=== PATIENT | male | born 1995 | race Caucasian/White ===

== ENCOUNTER 2023-07-31 10:28 | Emergency (ER) | payer SELFPAY ==
[2023-07-31 10:29] VITALS: BP 121/87
--- NOTE | 2023-07-31 10:36 | ED.GENMED ---
History of Present Illness
<Betsy Carl PA-C - Last Filed: 07/31/23 14:30>
General
Chief Complaint: Skin Problem
Source: patient
Exam Limitations: none
Time Seen by Provider: 07/31/23 10:36
Nursing documentation reviewed up to this point in time: agreed with
Travel History
Have you had any contact with someone who has COVID-19?: No
Do you have any symptoms of coronavirus? Fever > 100 degrees, chills, cough, shortness of breath, sore throat, loss of taste or smell, muscle aches, or headache?: No
History of Present Illness
History of Present Illness:
27-year-old male with past medical history of asthma presenting emergency department today with concerns of a rash. Patient states that he was working in his garden 2 days ago and noticed that he came into contact with poison mary and has been
getting a rash over his forearms, webspaces of his fingers, and his groin and buttocks. Patient denies any trouble breathing, any tongue or lip swelling. Patient denies any dysphagia. Patient denies any abdominal pain, nausea or vomiting.
Patient states that he has been taking allergy medication with some relief.
Past History
<Betsy Carl PA-C - Last Filed: 07/31/23 14:30>
Past History
ED Past Medical History: Asthma
ED Past Surgical History: None
Social History
Tobacco: Non-smoker
Alcohol: None
Drug: None
Personal: Single
Living: with family
Employment: Student
Family History
Family History: Other (Nontender)
Review of Systems
<Betsy Carl PA-C - Last Filed: 07/31/23 14:30>
Review of Systems
All Other Systems: ROS reviewed and negative except as documented in HPI and ROS
Phy Exam
<Betsy Carl PA-C - Last Filed: 07/31/23 14:30>
Physical Exam
Physical Exam:
Vitals: Vitals are stable, patient is afebrile
General: Patient is well appearing and in no acute distress; non-toxic
Skin: Warm and dry, raised erythematous patches with scattered vesicles and linear excoriations noted on the bilateral forearms, web spaces of fingers, and in the periumbilical region and folds of the inner thighs
Head: Normocephalic, atraumatic
Eyes: Sclera non-icteric. EOMs intact. PERRLA.
Cardiac: Regular rate
Peripheral Vascular: No lower extremity swelling
Pulm: Normal respiratory effort
Neuro: CN II-XII intact, no focal neurologic deficits.
Psychiatric: Appropriate mood and affect.
Course
<SAMY Gallegos Last Filed: 07/31/23 14:30>
Orders/Labs/Results
Orders:
Orders
07/31/23 10:50
Diphenhydramine [Benadryl] 25 mg PO NOW STA
Prednisone [Deltasone] 50 mg PO NOW STA
Vital Signs
Initial and Last Documented VS:
Initial Vital Signs
Temp Pulse Resp BP Pulse Ox
97.8 F 76 16 121/87 99
07/31/23 10:29 07/31/23 10:29 07/31/23 10:29 07/31/23 10:29 07/31/23 10:29
Last Documented Vital Signs
Temp Pulse Resp BP Pulse Ox
97.8 F 76 16 121/87 99
07/31/23 10:29 07/31/23 10:29 07/31/23 10:29 07/31/23 10:29 07/31/23 10:29
<Jorge A Tucker DO - Last Filed: 07/31/23 10:54>
Orders/Labs/Results
Orders:
Orders
07/31/23 10:50
Diphenhydramine [Benadryl] 25 mg PO NOW STA
Prednisone [Deltasone] 50 mg PO NOW STA
Vital Signs
Initial and Last Documented VS:
Initial Vital Signs
Temp Pulse Resp BP Pulse Ox
97.8 F 76 16 121/87 99
07/31/23 10:29 07/31/23 10:29 07/31/23 10:29 07/31/23 10:29 07/31/23 10:29
Last Documented Vital Signs
Temp Pulse Resp BP Pulse Ox
97.8 F 76 16 121/87 99
07/31/23 10:29 07/31/23 10:29 07/31/23 10:29 07/31/23 10:29 07/31/23 10:29
<SMAY Gallegos Last Filed: 07/31/23 14:30>
MDM/Problems Addressed
Differential Diagnosis Includes:
ddx include poison mary, poison [place], atopic dermatitis, drug reaction,
MDM/Problems Addressed:
rash
Chronic conditions affecting care:
asthma
Acute Exacerbation and/or Progression of Chronic Illness:
n/a
<SAMY Gallegos Last Filed: 07/31/23 14:30>
*Pulse Oximetry
Patient hypoxic: no
*Critical Care Note
Total Time (30-74mins, 75-104mins- exclusive of procedures): Not Applicable
Data Reviewed
Review of Other/Old Records Reveals: Records (reviewed ER physician docume)
Source: patient
<Betsy Carl PA-C - Last Filed: 07/31/23 14:30>
Patient Management
Escalation/DeEscalation of care consider admission/obs:
27-year-old male presenting emergency department today with a poison mary rash. Patient states has happened in the past to him, he does work in a garden. Patient denies any trouble breathing, chest pain, lip or tongue swelling. Patient given a
dose of prednisone here, patient has been using allergy medicine at home to help with itching. Will send patient home on a prednisone taper. Patient stable for discharge.
ED Attending Note
<Betsy Carl PA-C - Last Filed: 07/31/23 14:30>
-
Portions of this chart may have been created with voice recognition software.� Occasional wrong word or��sound alike� substitutions may have occurred due to the inherent limitations of voice recognition software.
<Jorge A Tucker DO - Last Filed: 07/31/23 10:54>
ED Attending Note
Patient seen and examined by attending physician: Yes
I performed the substantive portion of visit, reviewed & personally made and approve the management plan that is documented in note by myself or BC.: Yes
ED Attending Note:
20-year-old male who had contact with poison mary. Exam: Awake and alert. Reddened linear fashion rash noted to forearms mostly. No signs of infection. Assessment plan: Treat for poison mary with steroids. Benadryl as needed. Okay for discharge.
Agree with above
Discharge Plan
Departure
Patient Disposition: Home (Routine Discharge)
Date of Disposition: 07/31/23
Time of Disposition: 10:55
Patient with high blood pressure during this ER visit?: No
Condition: Good
Discharge Problem:
Poison mary
Instructions: Skin Rash (DC), Poison Mary, Poison [place], Poison [place] (DC), BLOOD PRESSURE
Prescriptions:
New
prednisone 10 mg Tablet
See Rx Instructions .ROUTE .COMPLEX Qty: 45 0RF
Rx Instructions:
Take By Mouth:
50 mg daily x3 days, 40 mg daily x3 days,
30 mg daily x3 days, 20 mg daily x3 days,
10 mg daily x3 days
Activity Restrictions/Additional Instructions:
We have sent Prednisone to your pharmacy. Please take as follows:
50 mg daily x3 days, 40 mg daily x3 days, 30 mg daily x3 days, 20 mg daily for 3 days, 10 mg daily x3 days
Please wash your hands frequently to help keep the rash from spreading.
Please return to the emergency department should you develop shortness of breath, difficulty swallowing, tongue or lip swelling, fevers or chills.
Please keep the skin warm and dry. You can take Benadryl and Zyrtec/Allergra as well to help with the itching.
Interventions
Interventions:
*Risk Screen - Suicide Last Done: 07/31/23 10:29
*General Assessment Last Done: 07/31/23 10:29
*Neglect/Abuse Screening Last Done: 07/31/23 10:29
*Nursing Disposition Last Done: 07/31/23 11:08
ED-Skin Assessment Last Done: 07/31/23 11:07
Discharge Date and Time
Discharge Date/Time: 07/31/23 11:08
Print Language: POLISH
[2023-07-31] MEDS: DELTASONE 50 MG PO (10:58)
[2023-07-31] MEDS: BENADRYL 25 MG PO (10:58)
== END 2023-07-31 11:08 | disposition home or self-care (01) ==
LOC: EMR 10:28
PROVIDERS: EMERGENCY PHYSICIAN Emergency Medicine; FAMILY PHYSICIAN Family Medicine
DX: L23.7 Allergic contact dermatitis due to plants, except food (principal); J45.909 Unspecified asthma, uncomplicated
CPT/HCPCS: 99282

== ENCOUNTER 2023-08-03 16:03 | Emergency (ER) | payer SELFPAY ==
[2023-08-03 16:04] VITALS: BP 149/80
[2023-08-03 17:10] VITALS: BMI 27.3
--- NOTE | 2023-08-03 17:51 | ED.GENMED ---
History of Present Illness
<Dee Slade PA-C - Last Filed: 08/04/23 10:23>
General
Chief Complaint: Skin Problem
Source: patient
Exam Limitations: none
Time Seen by Provider: 08/03/23 16:37
Nursing documentation reviewed up to this point in time: agreed with
Travel History
Have you had any contact with someone who has COVID-19?: No
Do you have any symptoms of coronavirus? Fever > 100 degrees, chills, cough, shortness of breath, sore throat, loss of taste or smell, muscle aches, or headache?: No
History of Present Illness
History of Present Illness:
Patient is a 27-year-old male presenting to the emergency department for evaluation of rash. Patient was seen in the emergency department 4 days ago, diagnosed with poison maria r and started on a prednisone taper course. Patient states he has been
taking the taper course as prescribed and is on day 4. He has been noticing spread of rash across his body. Rash was initially on the right volar forearm but has been spreading up the right arm. He also noted some new red spots on his right upper
abdomen and left forearm. Today, patient noticed some redness and mild swelling under his eyes and became concerned that rash was spreading.
Patient denies any oral swelling, difficulty breathing, shortness of breath, chest pain. Patient denies any visual changes.
Patient does report that he cleaned his sheets and clothes. He is trying his best to keep his hands clean to prevent reinfection. He does work outside daily and is unsure if he has had a repeat exposure.
Past History
<Dee Slade PA-C - Last Filed: 08/04/23 10:23>
Past History
ED Past Medical History: Asthma
ED Past Surgical History: None
Social History
Tobacco: Non-smoker
Alcohol: None
Drug: None
Personal: Single
Living: with family
Employment: Student
Family History
Family History: Other (Nontender)
Review of Systems
<Dee Slade PA-C - Last Filed: 08/04/23 10:23>
Review of Systems
Allergies reviewed?: Yes
All Other Systems: ROS reviewed and negative except as documented in HPI and ROS
Phy Exam
<Dee Slade PA-C - Last Filed: 08/04/23 10:23>
Physical Exam
Physical Exam:
Vitals: Patient's vital signs are stable. Afebrile.
General: Patient is well appearing, no acute distress
Skin: Warm and dry. Raised erythematous patches in a linear distribution with occasional vesicles on right volar forearm extending onto right antecubital fossa, left volar forearm, right upper flank, and webspaces of fingers. No red streaking,
significant warmth, or overlying crust. No evidence of cellulitis.
Head: Normocephalic, atraumatic
Eyes: Sclera clear bilaterally. EOMs intact. No nystagmus. No periorbital edema bilaterally. No proptosis.
Throat: Protecting airway. Uvula midline. No edema of tongue or lips.
Neck: Normal ROM, no cervical spine tenderness, no meningismus
Cardiac: Regular rate and rhythm, no murmurs.
Pulm: Normal respiratory effort, no wheezes, rales, rhonchi heard on exam.
Abdomen: No abdominal tenderness.
Extremities: No evidence of cyanosis or edema
Neuro: AAOx3. CN II-XII intact. No focal neurologic deficits.
Psychiatric: Normal affect.
Course
<Dee Slade PA-C - Last Filed: 08/04/23 10:23>
Vital Signs
Initial and Last Documented VS:
Initial Vital Signs
Temp Pulse Resp BP Pulse Ox
99.0 F 92 16 149/80 99
08/03/23 16:04 08/03/23 16:04 08/03/23 16:04 08/03/23 16:04 08/03/23 16:04
Last Documented Vital Signs
Temp Pulse Resp BP Pulse Ox
99.0 F 92 16 149/80 99
08/03/23 16:04 08/03/23 16:04 08/03/23 16:04 08/03/23 16:04 08/03/23 16:04
<Mauricio Hernandez MD - Last Filed: 08/03/23 20:18>
Vital Signs
Initial and Last Documented VS:
Initial Vital Signs
Temp Pulse Resp BP Pulse Ox
99.0 F 92 16 149/80 99
08/03/23 16:04 08/03/23 16:04 08/03/23 16:04 08/03/23 16:04 08/03/23 16:04
Last Documented Vital Signs
Temp Pulse Resp BP Pulse Ox
99.0 F 92 16 149/80 99
08/03/23 16:04 08/03/23 16:04 08/03/23 16:04 08/03/23 16:04 08/03/23 16:04
<Dee Slade PA-C - Last Filed: 08/04/23 10:23>
MDM/Problems Addressed
Differential Diagnosis Includes:
Not limited to: Poison maria r, poison [place], other contact dermatitis, eczema, bacterial infection
MDM/Problems Addressed:
Patient is a 27-year-old male presenting with spreading poison maria r rash. Patient currently on day 3 of oral steroid taper course. Patient denies any fever, chills, oral swelling, or shortness of breath. Patient does work outdoors and unsure if he
has had any repeat exposures. Patient using antihistamine at home to control itch. Vital signs are stable. Exam as above. There are scattered patches of poison maria r rash on right arm, left arm, and right flank. Mild erythema of bilateral cheeks
without any vesicular component to suggest spread of posion maria r. There is no signs of involvement of eyes. There are absolutely no signs of secondary bacterial infection. Patient very well-appearing. Patient is on an appropriate steroid taper
course. Discussed with patient importance of thorough cleaning of sheets, pillowcases, clothing. Discussed importance of diligent handwashing to prevent further spread. Patient should wear clothing with adequate coverage when working outdoors.
No indication for change in management at this time. He is stable for discharge with close return precautions including monitoring for signs of infection. Patient instructed to continue prednisone taper course, antihistamines as needed.
Update: Patient did elope from the emergency department prior to receiving discharge instructions.
Chronic conditions affecting care:
N/A
Acute Exacerbation and/or Progression of Chronic Illness:
N/A
<Dee Slade PA-C - Last Filed: 08/04/23 10:23>
*Pulse Oximetry
Patient hypoxic: no
*EKG
Interpreted by ED Provider?: NA
*Manager Professional Development Interpretation
Rate: Manager Professional Development- N/A
*Critical Care Note
Total Time (30-74mins, 75-104mins- exclusive of procedures): Not Applicable
ED Attending Note
<Dee Slade PA-C - Last Filed: 08/04/23 10:23>
-
Portions of this chart may have been created with voice recognition software.� Occasional wrong word or��sound alike� substitutions may have occurred due to the inherent limitations of voice recognition software.
<Mauricio Hernandez MD - Last Filed: 08/03/23 20:18>
ED Attending Note
I performed the substantive portion of visit, reviewed & personally made and approve the management plan that is documented in note by myself or BC.: Yes
ED Attending Note:
I went to assess the patient after discussion of history, exam and treatment plan with advanced practice practitioner but unfortunately patient had eloped prior to my assessment.
Focused HPI: This is reportedly a 27-year-old male currently on prednisone for poison maria r. He works in [employer]. He was having extension of his rash and continued itching so he came to the emergency room.
Physical exam: I was unable to examine him�see BC exam.
Medical Decision Makin-year-old male with worsening symptoms from poison maria r. Per PA no signs of superinfection. Can continue oral steroid and use topical anti-itch creams. PA did discuss washing clothes, shoes and shoelaces and wearing long
sleeves when working outside. He eloped prior to my assessment.
Discharge Plan
Departure
Patient Disposition: Elopement
Patient with high blood pressure during this ER visit?: Yes
Condition: Good
Covid-19: Not Applicable
Discharge Problem:
Poison maria r dermatitis
Instructions: Poison maria r
Prescriptions:
No Action
prednisone 10 mg Tablet
See Rx Instructions .ROUTE .COMPLEX Qty: 45 0RF
Rx Instructions:
Take By Mouth:
50 mg daily x3 days, 40 mg daily x3 days,
30 mg daily x3 days, 20 mg daily x3 days,
10 mg daily x3 days
Referrals:
NONE,* [Family Provider] -
Activity Restrictions/Additional Instructions:
RETURN TO THE EMERGENCY DEPARTMENT WITH ANY FEVERS, SWELLING OF TONGUE OR MOUTH, SHORTNESS OF BREATH, ANY SIGNS OF INFECTION, CHEST PAIN, WORSENING IN CURRENT SYMPTOMS OR ANY OTHER CONCERNS
-As discussed�it is importantly complete the course of steroids. You can use calamine lotion or OTC Zanfel for itch.
-It is very important that you clean all of your sheets, pillowcases, towels, close. It is important to adhere to diligent handwashing prevent further spread of poison maria r. You should wear long clothing to prevent repeat exposures.
Interventions
Interventions:
*Risk Screen - Suicide Last Done: 08/03/23 17:10
*General Assessment Last Done: 08/03/23 16:04
*Neglect/Abuse Screening Last Done: 08/03/23 17:10
ED- Fall Risk Assessment Last Done: 08/03/23 17:10
*ED COVID-19 Vaccine History Last Done: 08/03/23 16:04
*Nursing Disposition Last Done: 08/03/23 18:36
ED-Skin Assessment Last Done: 08/03/23 17:10
Discharge Date and Time
Discharge Date/Time: 08/03/23 18:37
Print Language: TURKISH
--- NOTE | 2023-08-03 18:36 | EDRN ---
The pt eloped from the unit, this RN notified the provider and the charge nurse
== END 2023-08-03 18:37 | disposition left against medical advice (07) ==
LOC: EMR 16:03
PROVIDERS: EMERGENCY PHYSICIAN Emergency Medicine
DX: L23.7 Allergic contact dermatitis due to plants, except food (principal); R22.0 Localized swelling, mass and lump, head; R03.0 Elevated blood-pressure reading, without diagnosis of hypertension; J45.909 Unspecified asthma, uncomplicated
CPT/HCPCS: 99282

== ENCOUNTER 2023-09-11 18:50 | Emergency (ER) | payer SELFPAY ==
[2023-09-11 18:53] VITALS: BP 141/86; BMI 27.3
--- NOTE | 2023-09-11 19:00 | ED.GENMED ---
History of Present Illness
General
Chief Complaint: Skin Problem
Time Seen by Provider: 09/11/23 19:00
History of Present Illness
History of Present Illness:
HPI: The patient presents due to concerns of infection at the left foot on the dorsal aspect. 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 He also reports having a history of MRSA and sounds like may have been bacteremic in the
past requiring hospitalization for a week. He currently does not have any fevers.
EXAM:
GENERAL: Well appearing in no distress, he is well-appearing
HEENT: Moist oral mucosa
CARDIOVASCULAR: No murmurs, normal heart rate, regular rhythm, No chest wall tenderness
PULMONARY: No respiratory distress, breath sounds are clear and equal
ABDOMEN: Soft with no peritoneal signs, no tenderness
NEUROLOGIC: Excellent strength all extremities, no coordination deficits
PSYCHIATRIC: Appropriate mental status, normal insight and judgement
EXTREMITIES: There is an unroofed blister to the midpoint of the dorsal aspect of the left foot, there is also surrounding cellulitic changes with warmth and erythema which is tender to palpation, he has good perfusion distally
TIME OF INITIAL ENCOUNTER: 7:05 PM
NUMBER AND COMPLEXITY OF PROBLEMS ADDRESSED AT THE ENCOUNTER
� Chronic conditions affecting care: Asthma, has had asthma in the past
� Acute Exacerbation and/or Progression of Chronic Illness: This is an acute problem
� Differential Diagnosis includes: Cellulitis, MRSA, doubt bacteremia/sepsis vital signs
AMOUNT AND/OR COMPLEXITY OF DATA TO BE REVIEWED AND ANALYZED
� I performed an independent evaluation of and my interpretation is:
EKG:
CT:
X-rays:
Laboratory Studies:
Other:
� Review of other/old records:
� Clinical information was obtained by an independent historian: None needed
� Prescriptions/Medications Considered but not given: Consider doxycycline however the patient works outside frequently
� Further testing considered but not performed: No clear indication for at this time
RISK OF COMPLICATIONS AND/OR MORBIDITY OR MORTALITY OF PATIENT MANAGEMENT
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
� Discussion with other providers:
� Escalation of care including admission/observation vs risk of discharge considered: As patient does have a history of MRSA, and has signs of cellulitis to the dorsal aspect of the left foot, will place on clindamycin
Past History
Past History
ED Past Medical History: Asthma
ED Past Surgical History: None
Social History
Tobacco: Non-smoker
Alcohol: None
Drug: None
Personal: Single
Living: with family
Employment: Student
Family History
Family History: Other (Nontender)
Phy Exam
Physical Exam
Physical Exam:
See HPI
Course
Orders/Labs/Results
Orders:
Orders
09/11/23 19:11
Clindamycin HCl [Cleocin] 300 mg PO NOW STA
Vital Signs
Initial and Last Documented VS:
Initial Vital Signs
Temp Pulse Resp BP Pulse Ox
98.9 F 98 16 141/86 98
09/11/23 18:53 09/11/23 18:53 09/11/23 18:53 09/11/23 18:53 09/11/23 18:53
Last Documented Vital Signs
Temp Pulse Resp BP Pulse Ox
98.9 F 98 16 141/86 98
09/11/23 18:53 09/11/23 18:53 09/11/23 18:53 09/11/23 18:53 09/11/23 18:53
*Critical Care Note
Total Time (30-74mins, 75-104mins- exclusive of procedures): Not Applicable
ED Attending Note
-
Portions of this chart may have been created with voice recognition software.� Occasional wrong word or��sound alike� substitutions may have occurred due to the inherent limitations of voice recognition software.
Discharge Plan
Departure
Patient Disposition: Home (Routine Discharge)
Date of Disposition: 09/11/23
Time of Disposition: 19:11
Patient with high blood pressure during this ER visit?: Yes
Discharge Problem:
Cellulitis
Instructions: Cellulitis (Skin Infection), Adult (DC)
Prescriptions:
New
clindamycin HCl 300 mg capsule
300 mg PO TID Qty: 21 0RF
Activity Restrictions/Additional Instructions:
Next dose of clindamycin tomorrow. Clindamycin does have coverage against MRSA as well. Return here if worse. Typically, we say that it would take about 48 hours to see improvement.
Interventions
Interventions:
*Risk Screen - Suicide Last Done: 09/11/23 18:53
*General Assessment Last Done: 09/11/23 19:03
*Neglect/Abuse Screening Last Done: 09/11/23 18:53
ED- Fall Risk Assessment Last Done: 09/11/23 19:03
*ED COVID-19 Vaccine History Last Done: 09/11/23 19:03
ED-Skin Assessment Last Done: 09/11/23 19:03
Discharge Date and Time
Print Language: PALESTINIAN
[2023-09-11] MEDS: CLEOCIN 300 MG PO (19:56)
== END 2023-09-11 19:59 | disposition home or self-care (01) ==
LOC: EMR 18:50
PROVIDERS: EMERGENCY PHYSICIAN Emergency Medicine
DX: L03.116 Cellulitis of left lower limb (principal); R03.0 Elevated blood-pressure reading, without diagnosis of hypertension; J45.909 Unspecified asthma, uncomplicated; Z86.14 Personal history of Methicillin resistant Staphylococcus aureus infection
CPT/HCPCS: 99283

== ENCOUNTER 2024-04-04 17:46 | Emergency (ER) | payer SELFPAY ==
[2024-04-04 17:48] VITALS: BP 143/94
[2024-04-04 18:55] VITALS: BP 143/89; BMI 29.8
--- NOTE | 2024-04-04 19:31 | ED.GENMED ---
History of Present Illness
General
Chief Complaint: Skin Problem
Time Seen by Provider: 04/04/24 19:12
History of Present Illness
History of Present Illness:
28-year-old male with prior history of MRSA presenting to the emergency department for concern of a skin infection. Patient reports yesterday he started to note red dots left forearm and one dot on his right umbilical region. He notes history of
MRSA in the past, required admission for IV antibiotics so he was concerned and wanted to start treatment prior to infection escalating. Does note the symptoms started after going to the gym. Denies any systemic symptoms such as fever. Denies
chest pain, difficulty breathing. Denies abdominal pain or GI symptoms. Denies additional acute medical complaints
Past History
Past History
ED Past Medical History: Asthma
ED Past Surgical History: None
Social History
Tobacco: Non-smoker
Alcohol: None
Drug: None
Personal: Single
Living: with family
Employment: Student
Family History
Family History: Other (Nontender)
Phy Exam
Physical Exam
Physical Exam:
General: Well-appearing, no clinical signs of dehydration, nontoxic and in no acute distress
HEENT: protecting airway
Neck: appears supple
CV: Normal heart rate
Resp: No accessory muscle use, no increased work of breathing
Abd: No distention
Extremities: No deformities, no swelling, no erythema
Neuro: alert, no focal neurologic deficit
: deferred
Rectal: deferred
Psych: Normal affect
Skin: Small red papules, scattered at the left medial forearm. 1 area at the umbilicus. No confluence of papules or large area of erythema
Course
Vital Signs
Initial and Last Documented VS:
Initial Vital Signs
Temp Pulse Resp BP Pulse Ox
98.5 F 77 16 143/94 100
04/04/24 17:48 04/04/24 17:48 04/04/24 17:48 04/04/24 17:48 04/04/24 17:48
Last Documented Vital Signs
Temp Pulse Resp BP Pulse Ox
98.5 F 75 16 143/89 99
04/04/24 17:48 04/04/24 18:55 04/04/24 18:55 04/04/24 18:55 04/04/24 18:55
MDM/Problems Addressed
MDM/Problems Addressed:
28-year-old male with prior history of MRSA presenting for concern of skin rash. No symptoms started yesterday. Vital signs are normal
On exam patient is well-appearing, no acute distress or discomfort. Patient with very minor area of redness on his left arm and umbilical lesion. Overall low suspicion for MRSA. Possible folliculitis, however patient notes that his symptoms
started like this on his prior episode of MRSA. Will err on the side of caution and start patient on oral antibiotic. Otherwise patient is nontoxic, no acute distress. No neurovascular compromise to extremity. No indication for advanced workup
or admission. Will start on doxycycline. Return precautions discussed and patient verbalized under
*Critical Care Note
Total Time (30-74mins, 75-104mins- exclusive of procedures): Not Applicable
ED Attending Note
-
Portions of this chart may have been created with voice recognition software.� Occasional wrong word or��sound alike� substitutions may have occurred due to the inherent limitations of voice recognition software.
Discharge Plan
Departure
Prescriptions:
No Action
clindamycin HCl 300 mg capsule
300 mg PO TID Qty: 21 0RF
Referrals:
NONE,* [Family Provider] -
Interventions
Interventions:
*Risk Screen - Suicide Last Done: 04/04/24 17:48
*General Assessment Last Done: 04/04/24 18:55
*Neglect/Abuse Screening Last Done: 04/04/24 17:48
ED- Fall Risk Assessment Last Done: 04/04/24 18:55
*ED COVID-19 Vaccine History Last Done: 04/04/24 18:55
ED-Skin Assessment Last Done: 04/04/24 18:55
Discharge Date and Time
Print Language: FRISIAN
[2024-04-04] MEDS: VIBRAMYCIN 100 MG PO (19:43)
== END 2024-04-04 20:15 | disposition home or self-care (01) ==
LOC: EMR 17:46
PROVIDERS: EMERGENCY PHYSICIAN Student in an Organized Health Care Education/Training Program
DX: R21 Rash and other nonspecific skin eruption (principal); J45.909 Unspecified asthma, uncomplicated; Z86.14 Personal history of Methicillin resistant Staphylococcus aureus infection
CPT/HCPCS: 99282

== ENCOUNTER 2024-08-15 07:48 | Emergency (ER) | payer SELFPAY ==
[2024-08-15 07:49] VITALS: BP 140/91
[2024-08-15 09:32] VITALS: BMI 28.7
[2024-08-15 09:47] LABS: % Basophils 0.3 % (0-2); % Eosinophils 1.2 % (0-6); % Immature Granulocytes 0.2 % (0-0.5); % Lymphocytes 26.8 % (20.5-51.1); % Monocytes 9.1 % (1.7-9.3); % Neutrophils 62.4 % (42.2-75.2); Absolute Eosinophils 0.1 10^3/uL (0-0.7); Absolute Lymphocytes 2.3 10^3/uL (1.2-3.4); Absolute Monocytes 0.8 10^3/uL (0.1-0.6); Absolute Neutrophils 5.4 10^3/uL (1.4-6.5); Hematocrit 42.6 % (39.0-52.0); Hemoglobin 14.4 g/dL (13.0-18.0); Mean Corp Hgb Conc. 33.8 g/dL (33.0-37.0); Mean Corpuscular Hgb 31.4 pg (27.0-31.0); Mean Corpuscular Volume 92.8 fL (80.0-94.0); Mean Platelet Volume 9.2 fL (7.4-10.4); Nucleated Red Blood Cells % 0 % (-); Platelet Count 294 10^3/uL (130-400); Red Blood Cell Count 4.59 10^6/uL (4.70-6.10); Red Cell Dist. Width 12.4 % (11.5-14.5); White Blood Cell Count 8.7 10^3/uL (4.8-10.8)
--- NOTE | 2024-08-15 09:57 | ED.GENMED ---
History of Present Illness
<SAULO Carlos - Last Filed: 08/16/24 12:07>
General
Chief Complaint: Rectal Bleeding
Time Seen by Provider: 08/15/24 08:00
<Mauricio Hernandez MD - Last Filed: 08/15/24 10:54>
General
Source: patient
Exam Limitations: none
Nursing documentation reviewed up to this point in time: agreed with
History of Present Illness
History of Present Illness:
28-year-old male with history of asthma presents for multiple complaints�he is 3 main complaints 1) intermittent rectal bleeding for a few months 2) hematuria 3) intermittent headaches.
Regarding rectal bleeding: Patient reports for the past few months he has had intermittent blood in his stool�most persistent over the past month. He says that he will have 1 or 2 episodes every week or 2 where he notices blood coating his stool.
He denies any rectal pain, abdominal pain, dizziness, shortness of breath/lightheadedness. He is not on any blood thinners.
Regarding hematuria: Patient reports that this morning he woke up and noticed blood mixed in with his urine. Denies any hematuria. He denies any trauma. Denies any penile discharge. He was able to completely empty his bladder and denies any
issue with his stream. He says he has never had similar issue in the past. He is requesting that we test him for STDs.
Regarding headaches: Patient reports over the past month he has had 'splitting headaches.' He describes 'like something stuck in my head.' He says that they last anywhere from 30 minutes to 2 hours. No clear trigger noted. He says that he gets
these headaches every 1 to 2 days over the past month. He denies any trauma to the head. He says he does get associated flashing lights in visual field with these headaches. He denies any vision loss or eye pain. Denies any speech issues.
Denies any weakness or numbness in extremities.
Patient does not have a primary doctor, currently does not have insurance. He has never been evaluated for these issues in the past.
Past History
<SAULO Carlos - Last Filed: 08/16/24 12:07>
Past History
ED Past Medical History: Asthma
ED Past Surgical History: None
Social History
Tobacco: Non-smoker
Alcohol: None
Drug: None
Personal: Single
Living: with family
Employment: Student
Family History
Family History: Other (Nontender)
Review of Systems
<Mauricio Hernandez MD - Last Filed: 08/15/24 10:54>
Review of Systems
All Other Systems: ROS reviewed and negative except as documented in HPI and ROS
Constitutional: Denies fever
Respiratory: Denies trouble breathing
Cardiac: Denies chest pain
ABD/GI: Reports bloody stools; Denies abdominal pain, nausea or vomiting
: Reports bleeding (Hematuria); Denies dysuria, frequency or flank pain
Musculoskeletal: Denies neck pain or back pain
Neurological: Reports headache; Denies dizzy, weakness or numbness
Phy Exam
<Mauricio Hernandez MD - Last Filed: 08/15/24 10:54>
Physical Exam
Physical Exam:
General: Awake, alert, oriented x3; no acute distress
Head: Normocephalic, atraumatic
Eyes: Conjunctiva normal, EOMI, pupils equal round reactive to light bilaterally
Throat: Airway intact, handling secretions
Neck: Trachea midline, supple without meningismus
Lungs: Clear to auscultation bilaterally, no wheezing, rales, rhonchi
Heart: Regular rate and rhythm, no murmurs, gallops, or rubs
Abd: Soft, non distended, nontender, no palpable mass
Back: No CVA tenderness
Rectal: Patient has external hemorrhoid, no anal fissures, no rectal masses, brown stool in rectal vault no blood noted
Neuro: Cranial nerves intact, speech fluid without dysarthria or aphasia, no limb ataxia, motor and sensory intact in all extremities, ambulatory with normal gait
Skin: no rash
Extremities: No edema in extremities, equal pulses in all extremities
Scores
<Mauricio Hernanedz MD - Last Filed: 08/15/24 10:54>
Heart Failure Risk
Heart Failure Risk Score: Not Applicable
Heart Score for Chest Pain Patients
STEMI patient?: Not applicable
Withdrawal Assessment of Alcohol
Withdrawal Assessment Completed?: Not applicable
Course
<SAULO Carlos - Last Filed: 08/16/24 12:07>
Orders/Labs/Results
Orders:
Orders
08/15/24 09:21
CT Head W/o Iv Contrast Urgent
Comment:
Reason For Exam: headache
08/15/24 09:28
Case Management Consult ONCE
Case Management Consult: Other
Comment: insurance
08/15/24 09:39
Complete Blood Count/With Diff Urgent
Comprehensive Metabolic Panel Urgent
Creatine Phosphokinase Urgent
Comment: ADD ON
Urinalysis Reflex To Culture Urgent
Date Specimen was Collected: 08/15/24
Time Specimen was Collected: 09:34
Urine Microscopic Reflex Cult Urgent
Chlamydia/GC by PCR Urgent
RYAN Source: Urine
Specimen Description:
Source:: URINE
Date Specimen was Collected: 08/15/24
Time Specimen was Collected: 09:33
Urine Culture Urgent
RYAN Source: U
Specimen Description:
Date Specimen was Collected: 08/15/24
Time Specimen was Collected: 09:34
08/15/24 10:12
Add On- LAB Urgent
Tests Added?: CPK
08/15/24 10:53
Cefdinir [Omnicef] 300 mg PO NOW STA
Abnormal Lab Results
08/15/24
09:39
RBC 4.59 L 10^6/uL
(4.70-6.10)
MCH 31.4 H pg
(27.0-31.0)
Absolute Monos (auto) 0.8 H 10^3/uL
(0.1-0.6)
Chloride 111 H mmol/L
(98-107)
Glucose 100 H mg/dl
(70-99)
Creatine Kinase 246 H U/L
(55-170)
Urine Ketones 1+ A
(Negative)
Ur Occult Blood Reflex 4+ A
(Negative)
Urine Nitrite (Reflex) Positive A
(Negative)
Leukocyte Esterase Rfl 1+ A
(Negative)
Urine RBC >100 A /HPF
(0-2)
Urine Bacteria (Reflex) Few A
(Negative)
Urine Albumin (Reflex) 3+ A
(Neg - Trace)
08/15/24 09:39
08/15/24 09:39
Vital Signs
Initial and Last Documented VS:
Initial Vital Signs
Temp Pulse Resp BP Pulse Ox
98.1 F 76 18 140/91 99
08/15/24 07:49 08/15/24 07:49 08/15/24 07:49 08/15/24 07:49 08/15/24 07:49
Last Documented Vital Signs
Temp Pulse Resp BP Pulse Ox
98.1 F 68 18 132/97 98
08/15/24 07:49 08/15/24 13:02 08/15/24 07:49 08/15/24 13:02 08/15/24 13:02
<Mauricio Hernandez MD - Last Filed: 08/15/24 10:54>
Orders/Labs/Results
Orders:
Orders
08/15/24 09:21
CT Head W/o Iv Contrast Urgent
Comment:
Reason For Exam: headache
08/15/24 09:28
Case Management Consult ONCE
Case Management Consult: Other
Comment: insurance
08/15/24 09:39
Complete Blood Count/With Diff Urgent
Comprehensive Metabolic Panel Urgent
Creatine Phosphokinase Urgent
Comment: ADD ON
Urinalysis Reflex To Culture Urgent
Date Specimen was Collected: 08/15/24
Time Specimen was Collected: 09:34
Urine Microscopic Reflex Cult Urgent
Chlamydia/GC by PCR Urgent
RYAN Source: Urine
Specimen Description:
Source:: URINE
Date Specimen was Collected: 08/15/24
Time Specimen was Collected: 09:33
Urine Culture Urgent
RYAN Source: U
Specimen Description:
Date Specimen was Collected: 08/15/24
Time Specimen was Collected: 09:34
08/15/24 10:12
Add On- LAB Urgent
Tests Added?: CPK
08/15/24 10:53
Cefdinir [Omnicef] 300 mg PO NOW STA
Abnormal Lab Results
08/15/24
09:39
RBC 4.59 L 10^6/uL
(4.70-6.10)
MCH 31.4 H pg
(27.0-31.0)
Absolute Monos (auto) 0.8 H 10^3/uL
(0.1-0.6)
Chloride 111 H mmol/L
(98-107)
Glucose 100 H mg/dl
(70-99)
Creatine Kinase 246 H U/L
(55-170)
Urine Ketones 1+ A
(Negative)
Ur Occult Blood Reflex 4+ A
(Negative)
Urine Nitrite (Reflex) Positive A
(Negative)
Leukocyte Esterase Rfl 1+ A
(Negative)
Urine RBC >100 A /HPF
(0-2)
Urine Bacteria (Reflex) Few A
(Negative)
Urine Albumin (Reflex) 3+ A
(Neg - Trace)
08/15/24 09:39
08/15/24 09:39
Vital Signs
Initial and Last Documented VS:
Initial Vital Signs
Temp Pulse Resp BP Pulse Ox
98.1 F 76 18 140/91 99
08/15/24 07:49 08/15/24 07:49 08/15/24 07:49 08/15/24 07:49 08/15/24 07:49
Last Documented Vital Signs
Temp Pulse Resp BP Pulse Ox
98.1 F 68 18 132/97 98
08/15/24 07:49 08/15/24 13:02 08/15/24 07:49 08/15/24 13:02 08/15/24 13:02
<Mauricio Hernandez MD - Last Filed: 08/15/24 10:54>
MDM/Problems Addressed
Differential Diagnosis Includes:
Rectal bleeding: Hemorrhoid, diverticular bleed/AVM/polyp all considered but unlikely given reported history and visible hemorrhoid on exam
Hematuria: UTI, bladder mass, nephrolithiasis, rhabdomyolysis, polyp/AVM, urethral tear/injury
Headaches: Tension headache, migraine headache, cluster headache, brain bleed, brain mass
MDM/Problems Addressed:
28-year-old male presents for evaluation of multiple complaints:
# Rectal bleeding: Patient has hemorrhoid noted on exam�clinical history is consistent with bleeding hemorrhoid. Will check H&H to ensure stability, advised regarding sitz bath's.
# Hematuria: Check urinalysis, renal function, CPK. Encourage fluids. Bladder scan to ensure no retention. Will need to see urology for follow-up.
# Headaches: Describes intermittent headaches associated with visual aura consistent with migraines. Will check CT head. Check CBC and electrolytes. Currently headache free.
Ultimately patient will need a primary care physician and insurance to ensure good outpatient medical follow-up. Case discussed with case management to help with patient acquiring insurance. Patient was referred for primary care physician via our
PCP referral line.
Labs and imaging reviewed: CBC shows normal hemoglobin 14.4, no thrombocytopenia or other clinically significant abnormalities. CMP no clinically significant abnormalities. Again, suspect GI bleeding is hemorrhoidal. Urinalysis is positive for
nitrites, blood�microanalysis shows bacteria with some pyuria and significant RBCs. Suspect that this is likely hemorrhagic cystitis we will treat with antibiotics. CT head showed no acute abnormalities�I suspect his headaches are migraine
headaches. At this point he is stable for discharge�will follow-up as an outpatient to establish care with a primary doctor. I also provided a referral to urology. manager solar provided resources to obtain insurance. Patient is comfortable with
the above plan. All questions were answered.
<Mauricio Hernandez MD - Last Filed: 08/15/24 10:54>
*Radiology
Radiology exam reviewed: radiology read reviewed
*Pulse Oximetry
Patient hypoxic: no
*Critical Care Note
Total Time (30-74mins, 75-104mins- exclusive of procedures): Not Applicable
Data Reviewed
Source: patient
ED Attending Note
<SAULO Carlos - Last Filed: 08/16/24 12:07>
-
Portions of this chart may have been created with voice recognition software.� Occasional wrong word or��sound alike� substitutions may have occurred due to the inherent limitations of voice recognition software.
Discharge Plan
Departure
Patient Disposition: Home (Routine Discharge)
Date of Disposition: 08/15/24
Time of Disposition: 10:53
Patient with high blood pressure during this ER visit?: Yes
Discharge Problem:
Hemorrhoid, Migraines, Hematuria, Acute UTI
Instructions: Blood in the urine (hematuria) in adults, Hemorrhoids (DC), Migraine in adults
Prescriptions:
New
cefdinir 300 mg capsule
300 mg PO BID 5 Days Qty: 10 0RF
No Action
ibuprofen [Advil] 200 mg Tablet
200 mg PO BID
omeprazole 20 mg Tablet,Delayed Release (Dr/Ec)
20 mg PO DAILY
Referrals:
Cornell Antoine MD [Active, Urology] - Call in 1-3 days for appt
Referral Note: Urology--follow up on hematuria
UNKNOWN - PT DOES,NOT KNOW [Family Provider]
Activity Restrictions/Additional Instructions:
Thank you for visiting the Emergency Department at [facility].
1. Please schedule a follow up appointment as directed. Call first thing tomorrow morning to make an appointment.
2. If indicated, please take your medications as instructed and indicated on discharge paperwork.
3. If any of your symptoms do not improve, or persist, or become more severe within 6-12 hours, please return to the emergency department for further care.
4. Please return to the emergency department if you develop a headache, neck pain/stiffness, fever greater than 100.4F, chest pain, shortness of breath, persistent nausea, vomiting, slurred speech, difficulty walking, numbness/tingling, weakness,
signs of infection or any other symptoms that are worrisome to you.
Please call [phone] if you have any questions.
Interventions
Interventions:
*Risk Screen - Suicide Last Done: 08/15/24 07:49
*General Assessment Last Done: 08/15/24 07:49
*Neglect/Abuse Screening Last Done: 08/15/24 07:49
*ED- Fall Risk Assessment Last Done: 08/15/24 09:42
*ED COVID-19 Vaccine History Last Done: 08/15/24 09:42
*Nursing Disposition Last Done: 08/15/24 13:02
TU-[facility] Assessment Last Done: 08/15/24 11:00
ED- Cardiac Assessment Last Done: 08/15/24 11:15
ED- Pulmonary Assessment Last Done: 08/15/24 09:46
Discharge Date and Time
Discharge Date/Time: 08/15/24 12:30
Print Language: SINHALA
--- NOTE | 2024-08-15 10:16 | CM ---
Met with pt bedside in ED. Pt currently uninsured, insurance resources provided. Pt is employed and plans to speak to his employer about insurance.
[2024-08-15 10:18] LABS: Urine Albumin 3+ (Neg - Trace); Urine Bilirubin Negative (Negative); Urine Character Cloudy (Clear); Urine Color Red; Urine Glucose Negative (Negative); Urine Ketone 1+ (Negative); Urine Leukocyte 1+ (Negative); Urine Nitrite Positive (Negative); Urine Occult Blood 4+ (Negative); Urine Specific Gravity 1.015 (<1.030); Urine Urobilinogen Negative (Neg - 1+)
[2024-08-15 10:39] LABS: Urine Urothelial Cell 0-2 /LPF (FEW)
[2024-08-15 10:40] LABS: Urine Red Blood Cell >100 /HPF (0-2)
[2024-08-15 10:41] LABS: Urine Bacteria Few (Negative)
[2024-08-15 10:46] LABS: ALT (SGPT) 23 U/L (0-50); AST (SGOT) 27 U/L (17-59); Albumin 4.5 g/dl (3.5-5.0); Alkaline Phosphatase 75 U/L (38-126); Blood Urea Nitrogen 18 mg/dl (9-20); Calcium 9.2 mg/dl (8.4-10.2); Carbon Dioxide 24 mmol/L (22-30); Chloride 111 mmol/L (98-107); Estimated Creatinine Clearance 114 ml/min; Glucose 100 mg/dl (70-99); Potassium 4.1 mmol/L (3.5-5.1); Sodium 141 mmol/L (135-145); Total Bilirubin 0.5 mg/dl (0.2-1.3); eGFR > 60.00
[2024-08-15 11:00] VITALS: BP 132/97
[2024-08-15 11:10] LABS: Creatine Phosphokinase 246 U/L (55-170)
[2024-08-15] MEDS: OMNICEF 300 MG PO (11:29)
[2024-08-15 13:02] VITALS: BP 132/97
== END 2024-08-15 12:30 | disposition home or self-care (01) ==
LOC: EMR 07:48
PROVIDERS: EMERGENCY PHYSICIAN Emergency Medicine
DX: K64.9 Unspecified hemorrhoids (principal); G43.909 Migraine, unspecified, not intractable, without status migrainosus; R31.9 Hematuria, unspecified; N39.0 Urinary tract infection, site not specified; J45.909 Unspecified asthma, uncomplicated; K62.5 Hemorrhage of anus and rectum; Z59.71 Insufficient health insurance coverage
CPT/HCPCS: 99284; 70450; 80053; 81003; 81015; 82550; 85025; 87086; 87491; 87591

== ENCOUNTER 2024-11-11 10:51 | Emergency (ER) | payer SELFPAY ==
[2024-11-11 10:57] VITALS: BP 146/85
[2024-11-11 12:06] LABS: Hematocrit 39.9 % (39.0-52.0); Hemoglobin 13.9 g/dL (13.0-18.0); Mean Corp Hgb Conc. 34.8 g/dL (33.0-37.0); Mean Corpuscular Volume 92.1 fL (80.0-94.0); Platelet Count 314 10^3/uL (130-400); Red Cell Dist. Width 11.9 % (11.5-14.5)
[2024-11-11 12:16] LABS: ALT (SGPT) 23 U/L (0-50); AST (SGOT) 28 U/L (17-59); Albumin 4.7 g/dl (3.5-5.0); Alkaline Phosphatase 73 U/L (38-126); Blood Urea Nitrogen 14 mg/dl (9-20); Calcium 9.3 mg/dl (8.4-10.2); Carbon Dioxide 25 mmol/L (22-30); Chloride 107 mmol/L (98-107); Glucose 96 mg/dl (70-99); Potassium 4.0 mmol/L (3.5-5.1); Sodium 138 mmol/L (135-145); Total Protein 7.3 g/dl (6.3-8.2); eGFR > 60.00
--- NOTE | 2024-11-11 12:34 | ED.GENMED ---
History of Present Illness
General
Chief Complaint: Dizziness
Time Seen by Provider: 11/11/24 11:06
History of Present Illness
History of Present Illness:
29-year-old male presents to the emergency department for evaluation of dizziness and heightened anxiety. He admits to spending the past several days consuming large amounts of alcohol, small usage of cocaine, and taking several doses of 'blue
chew' which is sildenafil. He does not have erectile dysfunction issues states that he did this 'to have a good time'. He took a dose of his significant other Xanax this morning but this did not improve his symptoms. No nausea or vomiting. No
syncope
Past History
Past History
ED Past Medical History: Asthma
ED Past Surgical History: None
Social History
Tobacco: Non-smoker
Alcohol: None
Drug: None
Personal: Single
Living: with family
Employment: Student
Family History
Family History: Other (Nontender)
Review of Systems
Review of Systems
Allergies reviewed?: Yes
All Other Systems: ROS reviewed and negative except as documented in HPI and ROS
Phy Exam
Physical Exam
Physical Exam:
GEN: Well appearing, NAD, WDWN
HEENT: Oral mucosa moist, no scleral icterus
Cardiac: Regular rate and rhythm, no murmur
Lung: No respiratory distress, no tachypnea, lungs clear to auscultation bilateral
MSK: No gross deformity or injuries
Skin: Good color, no pallor or jaundice, no rashes
Neuro: AO x3, moves all extremities freely
Psych: Calm, cooperative
Course
Orders/Labs/Results
Orders:
Orders
11/11/24 11:32
Electrocardiogram (*1) Urgent
Reason for Study: Palpitations
EKG- Treatment ONCE
11/11/24 11:51
Complete Blood Count/No Diff Urgent
Comprehensive Metabolic Panel Urgent
Abnormal Lab Results
11/11/24
11:51
RBC 4.33 L 10^6/uL
(4.70-6.10)
MCH 32.1 H pg
(27.0-31.0)
11/11/24 11:51
11/11/24 11:51
Vital Signs
Initial and Last Documented VS:
Initial Vital Signs
Temp Pulse Resp BP Pulse Ox
98.2 F 82 18 146/85 100
11/11/24 10:57 11/11/24 10:57 11/11/24 10:57 11/11/24 10:57 11/11/24 10:57
Last Documented Vital Signs
Temp Pulse Resp BP Pulse Ox
98.2 F 80 20 132/70 99
11/11/24 10:57 11/11/24 12:38 11/11/24 12:38 11/11/24 12:38 11/11/24 12:38
MDM/Problems Addressed
MDM/Problems Addressed:
Patient's labs are reassuring, no evidence for acute medical emergency, advised against combination of so many various medications and drugs in the future
Comment
Comment:
EKG independently interpreted by me shows a sinus arrhythmia with no ST changes concerning for ischemia
*Pulse Oximetry
SaO2: 100
Oxygen Mode of Delivery: Room air
Patient hypoxic: no
*Critical Care Note
Total Time (30-74mins, 75-104mins- exclusive of procedures): Not Applicable
ED Attending Note
-
Portions of this chart may have been created with voice recognition software.� Occasional wrong word or��sound alike� substitutions may have occurred due to the inherent limitations of voice recognition software.
Discharge Plan
Departure
Patient Disposition: Home (Routine Discharge)
Date of Disposition: 11/11/24
Time of Disposition: 12:34
Patient with high blood pressure during this ER visit?: No
Discharge Problem:
Anxiety
Instructions: Dizziness, Nonvertigo, (DC)
Prescriptions:
No Action
cefdinir 300 mg capsule
300 mg PO BID 5 Days Qty: 10 0RF
ibuprofen [Advil] 200 mg Tablet
200 mg PO BID
omeprazole 20 mg Tablet,Delayed Release (Dr/Ec)
20 mg PO DAILY
Referrals:
NONE,* [Family Provider, Internal Medicine]
Interventions
Interventions:
*Risk Screen - Suicide Last Done: 11/11/24 10:57
*General Assessment Last Done: 11/11/24 10:57
*Nursing Disposition Last Done: 11/11/24 12:38
ED- Neurological Assessment Last Done: 11/11/24 11:43
ED- Cardiac Assessment Last Done: 11/11/24 11:43
Discharge Date and Time
Discharge Date/Time: 11/11/24 12:39
Print Language: BERMUDIAN
[2024-11-11 12:38] VITALS: BP 132/70
== END 2024-11-11 12:39 | disposition home or self-care (01) ==
LOC: EMR 10:51
PROVIDERS: Physician Assistant; EMERGENCY PHYSICIAN Emergency Medicine
DX: F41.9 Anxiety disorder, unspecified (principal); R42 Dizziness and giddiness; J45.909 Unspecified asthma, uncomplicated; F14.90 Cocaine use, unspecified, uncomplicated
CPT/HCPCS: 99283; 80053; 85027; 93005